=== PATIENT | male | born 1990 | race African-American/Black ===

== ENCOUNTER 2016-12-22 09:33 | Emergency (ER) ==
[2016-12-22 09:59] VITALS: BP 119/74
[2016-12-22] MEDS ORDERED: NORFLEX IM ONE (10:29)
[2016-12-22] MEDS ORDERED: TORADOL IM ONE (10:29)
--- NOTE | 2016-12-22 10:30 | PROVIDER DOCUMENTATION ---
HPI-Musculoskeletal Pain/Inj - GENERAL Source: patient - HX OF PRESENT ILLNESS-MUSKULOSKELTAL Quality of Pain: reports: aching Severity in ED: mild Onset/Duration: last night Timing: still present Modifying Factors: improves with: nothing Any recent injury?: Yes Locality of Occurance: Other Similar Symptoms Previously?: Yes Recently seen or treated by another doctor?: No - LOWER EXTREMITY PAIN/INJURY Lower Extremities Pain: thigh: left (posterior ) Context / Method of Injury: reports: unknown Associated Symptoms: reports: weakness in legs/feet (L leg). denies: loss of bladder control, loss of bowel control, lower back pain, muscle spasms, numbness in legs/feet, sensory/motor loss, tingling in legs/feet <Joana Tran - Last Filed: 12/22/16 10:25> <Asaf Felipe - Last Filed: 12/22/16 10:55> - GENERAL Chief Complaint: Extremity Injury Stated Complaint: LEG INJURY Time Seen by Provider: 12/22/16 10:21 - HX OF PRESENT ILLNESS-MUSKULOSKELTAL Nature of Presenting Problem: Pt is 26 y/o M presents to the ED with L hamstring pain. Pt states playing basketball last night and feels like he pulled a muscle. Pt denies fall. Pt denies other injuries. (Joana Tran) Review of Systems - Adult - REVIEW OF SYSTEMS - ADULT Constitutional: reports: no symptoms reported Eyes: reports: no symptoms reported Ears, Nose, Mouth & Throat: reports: no symptoms reported Cardiovascular: reports: no symptoms reported Respiratory: reports: no symptoms reported Gastrointestinal: reports: no symptoms reported Genitourinary: reports: no symptoms reported Musculoskeletal: reports: muscle aches (L posterior upper leg), muscle weakness (L posterior upper leg). denies: bone pain, joint pain Integumentary: reports: no symptoms reported Neurological: reports: no symptoms reported Psychiatric: reports: no symptoms reported Endocrine: reports: no symptoms reported Hematologic/Lymphatic: reports: no symptoms reported Allergic/Immunologic: reports: no symptoms reported All Other Systems: Reviewed and Negative <Joana Tran - Last Filed: 12/22/16 10:25> Past History - Adult - PAST MEDICAL HISTORY-ADULT Review of Records: reports: Nursing Assessment Review, Medications Reviewed, Social history reviewed & non-contributory. Major Childhood Illnesses: reports: denies history Cardiovascular: reports: denies history Respiratory: reports: denies history Gastrointestinal: reports: denies history Obstetrical/Gynecological: reports: denies history Genitourinary: reports: denies history Musculoskeletal: reports: denies history Neurological: reports: denies history Psychiatric: reports: denies history Endocrine/Immune: reports: denies history Other Conditions: reports: denies history - PRIOR SURGERIES/PROCEDURES Surgical/Procedure History: reports: none - IMMUNIZATION STATUS Childhood Immunizations: See Nurse Assessment Flu Vaccine: See Nurse Assessment - FAMILY HISTORY Family History: reviewed, not pertinent - SOCIAL HISTORY Smoking: denies Substance Use: denies Living Situation: family <Joana Tran - Last Filed: 12/22/16 10:25> Physical Exam-Injury Related - Physical Exam-Injury Related Initial Vital Signs Reviewed: Yes General Appearance: appears well, alert, no apparent distress Eyes: PERRL/EOMI, pink conjunctivae, fundi clear, no AV nicking Head, Ears, Nose, Mouth & Throat: normocephalic/atraumatic, moist mucous membranes, normal ENT inspection, TMs normal, pharynx normal Neck: non-tender, full range of motion, supple, normal inspection Respiratory: chest non-tender, lungs clear, normal breath sounds, no pleuratic chest pain, no respiratory distress, no accessory muscle use Cardiovascular: normal peripheral pulses, regular rate, rhythm, no edema, no gallop, no JVD, no murmur Abdominal Exam: normal bowel sounds, non tender, soft, no organomegaly, no pulsatile mass Lymphatic: no adenopathy Back Exam: normal inspection, no CVA tenderness, no vertebral tenderness Extremity: no pedal edema, no calf tenderness, normal capillary refill, tenderness (posterior L upper leg). negative: normal range of motion (limited ROM) Integumentary: normal color, warm/dry Neurologic: grossly normal Psych/Mental Status: normal mood/affect, oriented x 3 <Joana Tran - Last Filed: 12/22/16 10:25> Progress <Joana Tran - Last Filed: 12/22/16 10:25> <Asaf Felipe - Last Filed: 12/22/16 10:55> - PLAN OF CARE/RESULTS Progress/Plan/Lab Results: Vital Signs - 24 hr 12/22/16 09:56 Temperature 98 F Pulse Rate 79 Respiratory 18 Rate Blood Pressure 119/74 O2 Sat by Pulse 99 Oximetry (Joana Tran) Discussed plan of care with patient. Patient agrees with plan and verbalizes understanding. Vital Signs Temp Pulse Resp BP Pulse Ox 12/22/16 09:56 98 F 79 18 119/74 99 No Known Allergies Allergy (Verified 08/22/16 07:58) No Home Medications 12/22/16 Orders Category Date Time Status Ketorolac [Toradol] Med 12/22/16 10:29 Discontinued 60 mg IM NOW ONE Orphenadrine [Norflex] Med 12/22/16 10:29 Discontinued 60 mg IM NOW ONE (Asaf Felipe) Departure <Joana Tran - Last Filed: 12/22/16 10:25> - Departure Time of Disposition Order: 10:53 Certified Medical Emergency: Emergent <Asaf Felipe - Last Filed: 12/22/16 10:55> - Departure DIAGNOSIS: Left hamstring muscle strain Qualifiers: Encounter type: initial encounter Qualified Code(s): S76.312A - Strain of muscle, fascia and tendon of the posterior muscle group at thigh level, left thigh, initial encounter Disposition: HOME 01 Condition: Stable Additional Instructions: Follow up with primary care physician Take medications as directed Use heating pad for comfort Rest and no strenuous activities Return to ED for any concerns or worsening of symptoms ED Follow Up Instructions: You have been treated by a care provider in the Emergency Department. These instructions are being provided to you so you can have an understanding of how to care for yourself upon discharge. Upon discharge from the Emergency Department, you are responsible for making arrangements for follow-up care by a physician of your choice. Take all prescribed medications as directed. Return to the Emergency Department immediately for any new or worsening symptoms. You may call the Physician Referral phone number at [phone] to obtain a list of Physicians who are taking new patients. Prescriptions: Cyclobenzaprine [Flexeril] 10 mg PO TID #20 tablet Ibuprofen [Motrin] 800 mg PO Q8H PRN PRN #20 tablet PRN Reason: inflammation Omeprazole 20 mg PO DAILY #20 tablet. Referrals: None,PCP [Primary Care Provider] - Forms: Return to School/Parent Work Attestation - Scribe Verification/Attestation Scribe:: Joana Tran Acting as Scribe for:: Asaf Felipe Scribe documention review:: This chart was documented by a scribe and accurately reflects the service the provider performed and the decisions made by the provider. <Joana Tran - Last Filed: 12/22/16 10:25> - Physician/ EDUARDO Attestation Patient care was provided by Advanced Practice Provider:: Yes Advanced Practice Provider:: Asaf Felipe Advanced Practice Provider documentation review:: The Mid-level provider documentation, treatment plan and medical decision making was reviewed by the physician who agrees with all treatment and medical decision making by the MLP. <Asaf Felipe - Last Filed: 12/22/16 10:55> Physician Attestation
== END 2016-12-22 11:07 | disposition home or self-care (01) ==
LOC: P.ED 09:33
DX: S76.312A Strain of muscle, fascia and tendon of the posterior muscle group at thigh level, left thigh, initial encounter (principal); M79.652 Pain in left thigh; M62.81 Muscle weakness (generalized); M79.1 Myalgia
CPT/HCPCS: 96372; J1885; J2360